=== PATIENT | female | born 1980 | race Two or more races ===

== ENCOUNTER 2017-08-03 12:43 | Emergency (ER) | payer OTHER ==
[2017-08-03 12:48] VITALS: TEMP 98.7; BMI 37.8
--- NOTE | 2017-08-03 14:17 | PDOC ---
Attending Attestation - Resident Resident Name: Rsoalinda Bellamy - ED Attending Attestation I have performed the following: I have examined & evaluated the patient, The case was reviewed & discussed with the resident, I agree w/resident's findings & plan, Exceptions are as noted - Medical Decision Making 08/03/17 14:17 I, Dr. Zohreh Dang, DO, attest that this document has been prepared under my direction and personally reviewed by me in its entirety. I further attest, that it accurately reflects all work, treatment, procedures and medical decision -making performed by me. 08/03/17 15:10 a/p: 37yo female with blurred vision earlier today (since resolved) and a headache -R sided long, will do ct head to r/o mass compressing optic chiasm -no focal neuro deficits -states more recent headaches -labs -reassess <Zohreh Dang - Last Filed: 08/03/17 15:10> - HPI HPI: 08/03/17 15:53 Patient is a 37 year old female with a significant past medical history of who presents to the ED with complaints of chronic headache that began 2 days ago. Patient reports headache began 2 days while at home suddenly. She reports the headache has been chronic for 2 days with no signs of relief. Patient reports intensity of headache pain increasing today while at work. She reports experiencing intermittent episodes of blurred vision secondary to headache pain. PAtient stays headache pain is a localized pain to her right side. Denies chest pain, SOB. Denies nausea, vomiting. Denies fevers, chills. Denies any other symptoms. Allergies: None Social history: Lives with and son. No smoking. Social drinker. No illicit drugs. Surgical history: None PMD: None. - Physicial Exam PE: 08/03/17 15:53 GENERAL: Awake, alert, and fully oriented, in no acute distress HEAD: No signs of trauma EYES: PERRLA, EOMI, sclera anicteric, conjunctiva clear ENT: Auricles normal inspection, hearing grossly normal, nares patent, oropharynx clear without exudates. Moist mucosa NECK: Normal ROM, supple, no lymphadenopathy, JVD, or masses LUNGS: Breath sounds equal, clear to auscultation bilaterally. No wheezes, and no crackles HEART: Regular rate and rhythm, normal S1 and S2, no murmurs, rubs or gallops ABDOMEN: Soft, nontender, normoactive bowel sounds. No guarding, no rebound. No masses EXTREMITIES: Normal range of motion, no edema. No clubbing or cyanosis. No cords, erythema, or tenderness NEUROLOGICAL: Cranial nerves II through XII grossly intact. Normal speech, normal gait SKIN: Warm, Dry, normal turgor, no rashes or lesions noted. - Medical Decision Making 08/03/17 15:53 Documentation prepared by Nish Burrows, acting as electromedical equipment technician for Zohreh Dang DO. <Nish Burrows - Last Filed: 08/03/17 15:54>
--- NOTE | 2017-08-03 14:31 | PDOC ---
History of Present Illness - General Chief Complaint: Difficulty with Vision Stated Complaint: HEADACHES, BLURRY VISION Time Seen by Provider: 08/03/17 14:10 History Source: Patient Exam Limitations: No Limitations - History of Present Illness Initial Comments: 08/03/17 14:28 CC: 2 day h/o headache with associated acute onset of blurry vision Patient is a 37 y.o. 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 Patient denies any associated confusion, diaphoresis, chest pain, shortness of breath or visual loss (just bluriness). At time of presentation to our ED, the blurry vision had largely resolved though patient c/o decreased peripheral vision. Patient notes she has a h/o migraines (3-4 migraines monthly) however she has never experienced visual loss. PMD: None Surgical: None NKDA Social: (4-5 cigarettes/month), 10 drinks monthly, Past History - Past Medical History Allergies/Adverse Reactions: Allergies Allergy/AdvReac Type Severity Reaction Status Date / Time No Known Allergies Allergy Verified 08/03/17 12:48 Home Medications: Ambulatory Orders NK [No Known Home Medication] 12/19/15 Kidney Stones: Yes - Suicide/Smoking/Psychosocial Hx Smoking Status: No Smoking History: Current some day smoker Have you smoked in the past 12 months: Yes Number of Cigarettes Smoked Daily: 2 Information on smoking cessation initiated: Yes 'Breaking Loose' booklet given: 08/03/17 Hx Alcohol Use: Yes (SOCIAL) Drug/Substance Use Hx: No Substance Use Type: None Review of Systems - Review of Systems Constitutional: No: Chills, Fever HEENTM: Yes: Blurred Vision. No: Eye Pain, Double Vision, Hearing Loss, Throat Pain Respiratory: No: Shortness of Breath, Hemoptysis Cardiac (ROS): No: Chest Pain, Lightheadedness, Palpitations ABD/GI: No: Constipated, Diarrhea, Nausea, Vomiting : No: Burning, Dysuria All Other Systems: Reviewed and Negative *Physical Exam - Vital Signs Last Vital Signs Temp Pulse Resp BP Pulse Ox 98.7 F 81 20 110/71 98 08/03/17 12:45 08/03/17 12:45 08/03/17 12:45 08/03/17 12:45 08/03/17 12:45 - Physical Exam General Appearance: Yes: Nourished, Obese HEENT: positive: EOMI, MCKAY. negative: Sinus Tenderness Neck: positive: Trachea midline, Supple Respiratory/Chest: positive: Lungs Clear, Normal Breath Sounds Cardiovascular: positive: Regular Rhythm, Regular Rate, S1, S2 Neurologic: positive: Fully Oriented, Alert ED Treatment Course - LABORATORY CBC & Chemistry Diagram: 08/03/17 14:37 08/03/17 14:37 - RADIOLOGY Radiology Studies Ordered: Category Date Time Status HEAD CT WITHOUT CONTRAST [CT] Stat CT Scan 08/03/17 14:26 Ordered Medical Decision Making - Medical Decision Making 08/03/17 14:51 Patient is a 37 y.o. obese female who presents c/o of acute onset of visual loss associated with a migraine. Initial DDX includes: migraine (possibly 2/2 to idiopathic intracranial HTN) vs. epidural hematoma vs. PLAN: 1. CBC, CMP 2. CT Head w/o contrast 3. 1 L IVNS 08/03/17 16:11 CT Head negative for acute mass, lesions, or hemorrhage. Patient's blurry vision and headache completely resolved. Patient discharged with follow up with PCP and neurology. *DC/Admit/Observation/Transfer Diagnosis at time of Disposition: Migraine - Discharge Dispostion Disposition: HOME Condition at time of disposition: Good Admit: No - Referrals Referrals: Valeria Gardner MD [Staff Physician] - - Patient Instructions Additional Instructions: Please call [phone] to establish primary care. In addition, please call Dr. Gardner, a neurologist, for evaluation of your headaches. Please return to the Emergency Department should your symptoms worsen. - Post Discharge Activity Forms/Work/School Notes: Back to Work
[2017-08-03] MEDS ORDERED: METOCLOPRAMIDE HCL INJECTION 10 MG/2 ML VIAL IVPUSH ONE (14:33)
[2017-08-03] MEDS ORDERED: SODIUM CHLORIDE 0.9% 1000 ML INFUS.BAG IV ONE (14:34)
[2017-08-03] MEDS ORDERED: METOCLOPRAMIDE HCL INJECTION 10 MG/2 ML VIAL ONE (14:40)
[2017-08-03 14:43] LABS: BASOPHIL 1.3 % (0-2.0); EOSINOPHIL 1.2 % (0-4.5); MCH 24.3 pg (25.7-33.7); MCHC 31.9 g/dl (32.0-36.0); MEAN CELL VOLUME 76.2 fl (80-96); MEAN PLT VOLUME 7.4 fl (7.5-11.1); NEUTROPHILS 65.5 % (42.8-82.8); PLATELET COUNT 338 K/MM3 (134-434); RDW 16.4 % (11.6-15.6); WHITE BLOOD COUNT 11.9 K/mm3 (4.0-10.0)
[2017-08-03 15:12] LABS: ALBUMIN 3.5 g/dl (3.4-5.0); ANION GAP 7 (8-16); BILIRUBIN,TOTAL 0.3 mg/dL (0.2-1.0); CO2 30 mmol/L (21-32); CREATININE 0.6 mg/dL (0.55-1.02); GLUCOSE,RANDOM 106 mg/dL (74-106); SGOT/AST 12 U/L (15-37); SGPT/ALT 16 U/L (12-78); TOT PROT 6.6 g/dl (6.4-8.2)
[2017-08-03 15:13] LABS: ALK PHOS 75 U/L (45-117)
[2017-08-03 16:53] VITALS: BP 130/71; PULSE 79
== END 2017-08-03 16:55 | disposition home or self-care (01) ==
LOC: JER 12:43
PROC: 3E033GC Introduction of Other Therapeutic Substance into Peripheral Vein, Percutaneous Approach (ICD-10-PCS; principal; 2017-08-03)
PROC: 3E033GC Introduction of Other Therapeutic Substance into Peripheral Vein, Percutaneous Approach (ICD-10-PCS; 2017-08-03)
DX: G43.909 Migraine, unspecified, not intractable, without status migrainosus (principal); F17.210 Nicotine dependence, cigarettes, uncomplicated
CPT/HCPCS: 36415; 70450-TC; 80053; 84703; 85025; 96374; 96375; 99282-25

== ENCOUNTER 2019-01-13 14:09 | Emergency (ER) | payer OTHER ==
[2019-01-13 14:21] VITALS: BMI 37.8
--- NOTE | 2019-01-13 14:51 | PDOC ---
History of Present Illness <Romeo Watt - Last Filed: 01/13/19 15:07> - General History Source: Patient Exam Limitations: No Limitations - History of Present Illness Initial Comments: 01/13/19 15:11 The patient is a 38 year old female , with a significant PMH of kidney stones, who presents to the emergency department with 3 weeks of intermittent right flank pain. The patient states the intermittent right flank pain radiates down into the thigh, exacerbated with sitting/ standing up and alleviated while lying flat and comes a few times a week. The patient reports her pain is different than past kidney stones. The patient reports her right flank pain worsened yesterday prompting her to go to Urgent Care today. The patient states she had a Urine Analysis taken (positive for nitrates) and was referred to the ED secondary to continuing pain and evalution for possible kidney stones. The patient states she lifts light boxes frequently at work. However, she denies any recent injuries or trauma. Denies any recent illness or sick contacts. The patient states she has taken tylenol over the past 2 weeks for the right flank pain with mild relief. The patient denies chest pain, shortness of breath, headache and dizziness. Denies fever, chills, nausea, vomit, diarrhea and constipation. Denies dysuria, foul smelling urine, frequency, urgency and hematuria. Allergies: NKA Surgical History: Essure placement Social History: No reported. PCP: Dr Millan <Stephen Chris - Last Filed: 01/13/19 19:00> - General Chief Complaint: Pain, Acute Stated Complaint: R/O KIDNEY STONE Time Seen by Provider: 01/13/19 14:44 Past History <Romeo Watt - Last Filed: 01/13/19 15:07> - Past Medical History Kidney Stones: Yes - Suicide/Smoking/Psychosocial Hx Smoking Status: No Smoking History: Current some day smoker Have you smoked in the past 12 months: Yes Number of Cigarettes Smoked Daily: 2 Information on smoking cessation initiated: No 'Breaking Loose' booklet given: 08/03/17 Hx Alcohol Use: No Drug/Substance Use Hx: No Substance Use Type: None <Stephen Chris - Last Filed: 01/13/19 19:00> - Past Medical History Allergies/Adverse Reactions: Allergies Allergy/AdvReac Type Severity Reaction Status Date / Time No Known Allergies Allergy Verified 01/13/19 14:18 Home Medications: Ambulatory Orders Nitrofurantoin Monohyd/M-Cryst [Macrobid -] 100 mg PO BID #9 capsule 01/13/19 Review of Systems - Review of Systems Able to Perform ROS?: Yes Comments:: 01/13/19 15:12 CONSTITUTIONAL: No reported: Fever, Chills, Diaphoresis, Generalized Weakness, Malaise, Loss of Appetite HEENT: No reported: Rhinorrhea, Nasal Congestion, Throat Pain, Throat Swelling, Difficulty Swallowing, Mouth Swelling, Ear Pain, Eye Pain, Visual Changes CARDIOVASCULAR: No reported: Chest Pain, Syncope, Palpitations, Irregular Heart Rate, Lightheadedness, Peripheral Edema RESPIRATORY: No reported: Cough, Shortness of Breath, SOB with Exertion, Orthopnea, Wheezing , Stridor, Hemoptysis GASTROINTESTINAL: No reported: Abdominal pain, Abdominal Distension, Nausea, Vomiting, Diarrhea, Constipation, Melena, Hematochezia GENITOURINARY: Reported: (+) Right flank pain. No reported: Dysuria, Frequency, Urgency, Hesitancy, Genital Pain MUSCULOSKELETAL: No reported: Myalgia, Arthralgia, Joint Swelling, Back pain, Neck Pain SKIN: No reported: Rash, Itching, Pallor HEMEATOLOGIC/IMMUNOLOGIC: No reported: Easy Bleeding, Easy Bruising, Lymphadenopathy, Frequent infections ENDOCRINE: No reported: Unexplained Weight Gain, Unexplained Weight Loss, Heat Intolerance , Cold Intolerance NEUROLOGIC: No reported: Headache, Focal Weakness, Paresthesias, Vertigo, Lightheadedness, Unsteady Gait, Seizure, Mental Status Changes, Incontinence PSYCHIATRIC: No reported: Anxiety, Depression <Stephen Chris - Last Filed: 01/13/19 19:00> *Physical Exam - Vital Signs Last Vital Signs Temp Pulse Resp BP Pulse Ox 98.3 F 73 18 120/72 5 L 01/13/19 14:15 01/13/19 14:15 01/13/19 14:15 01/13/19 14:15 01/13/19 14:15 <Romeo Watt - Last Filed: 01/13/19 15:07> - Vital Signs Last Vital Signs Temp Pulse Resp BP Pulse Ox 98.3 F 73 18 120/72 5 L 01/13/19 14:15 01/13/19 14:15 01/13/19 14:15 01/13/19 14:15 01/13/19 14:15 - Physical Exam Comments: 01/13/19 15:12 GENERAL: The patient is awake, alert, and fully oriented, Nontoxic - in no acute distress. HEAD: Normocephalic, atraumatic. EYES: extraocular movements intact, sclera anicteric, conjunctiva clear. ENT: Normal voice, Moist mucous membranes. NECK: Normal range of motion, supple LUNGS: Breath sounds equal, clear to auscultation bilaterally. No wheezes, no rhonchi, no rales. HEART: Regular rate and rhythm, normal S1 and S2 without murmur, rub or gallop. ABDOMEN: Soft, nontender, No guarding, no rebound. No CVA tenderness, mild ttp to R flank EXTREMITIES: Normal range of motion, no edema. NEUROLOGICAL: No facial assymetry, Normal speech, normal gait, strength symmetric b/l PSYCH: Normal mood, normal affect. SKIN: Warm, Dry, normal turgor, <Stephen Chris - Last Filed: 01/13/19 19:00> Moderate Sedation - Procedure Monitoring Vital Signs: Procedure Monitoring Vital Signs Temperature 98.3 F 01/13/19 14:15 Pulse Rate 73 01/13/19 14:15 Respiratory Rate 18 01/13/19 14:15 Blood Pressure 120/72 01/13/19 14:15 O2 Sat by Pulse Oximetry (%) 5 L 01/13/19 14:15 <Romeo Watt - Last Filed: 01/13/19 15:07> - Procedure Monitoring Vital Signs: Procedure Monitoring Vital Signs Temperature 98.3 F 01/13/19 14:15 Pulse Rate 73 01/13/19 14:15 Respiratory Rate 18 01/13/19 14:15 Blood Pressure 120/72 01/13/19 14:15 O2 Sat by Pulse Oximetry (%) 5 L 01/13/19 14:15 <Stephen Chris - Last Filed: 01/13/19 19:00> ED Treatment Course - LABORATORY CBC & Chemistry Diagram: 01/13/19 15:18 01/13/19 15:18 <Stephen Chris - Last Filed: 01/13/19 19:00> Medical Decision Making - Medical Decision Making 01/13/19 15:13 38-year-old female history of kidney stones presenting with intermittent right flank pain for last several weeks that seems to be present only when bending without associated dysuria, hematuria, fever, chills, numbness, tingling or weakness. On exam the patient is well-appearing, in no distress no tenderness noted in her abdomen, no CVA tenderness. The patient did have a UA at urgent care that was nitrite positive - The patient is otherwise asymptomatic I will recheck her urine will also obtain a CBC and CMP to rule out leukocytosis. Give the patient Toradol for pain <Stephen Chris - Last Filed: 01/13/19 19:00> *DC/Admit/Observation/Transfer - Attestations Scribe Attestion: 01/13/19 15:07 Documentation prepared by Romeo Watt, acting as certified medical technician assistant for Stephen Chris MD. <Romeo Watt - Last Filed: 01/13/19 15:07> - Discharge Dispostion Decision to Admit order: No <Stephen Chris - Last Filed: 01/13/19 19:00> Diagnosis at time of Disposition: Urinary tract infection Qualifiers: Urinary tract infection type: acute cystitis Hematuria presence: with hematuria Qualified Code(s): N30.01 - Acute cystitis with hematuria - Discharge Dispostion Disposition: HOME Condition at time of disposition: Improved - Referrals Referrals: April Millan MD [Primary Care Provider] - - Patient Instructions Printed Discharge Instructions: DI for Urinary Tract Infection (UTI) Additional Instructions: Return to the emergency department immediately with ANY new, persistent or worsening symptoms including fevers or chills, back pain or any other concerns. Please continue taking the antibiotics as prescribed. You MUST call and follow up with your doctor in 3-4 days for further evaluation of your symptoms. Results were discussed with you. Please make sure your doctor reviews the results of your emergency evaluation. Print Language: CHINESE - Post Discharge Activity
[2019-01-13] MEDS ORDERED: KETOROLAC TROMETHAMINE 30 MG/1 ML VIAL IVPUSH ONE (15:14)
[2019-01-13] MEDS ORDERED: KETOROLAC TROMETHAMINE 30 MG/1 ML VIAL ONE (15:41)
[2019-01-13 15:43] LABS: EOS % 1.1 % (0-4.5); HEMATOCRIT 38.3 % (32.4-45.2); HEMOGLOBIN 12.8 GM/dL (10.7-15.3); LYMPH % 26.1 % (8-40); MCHC 33.3 g/dl (32.0-36.0); MEAN PLT VOLUME 8.1 fl (7.5-11.1); MONO % 6.3 % (3.8-10.2); NEUT % 65.5 % (42.8-82.8); PLATELET COUNT 335 K/MM3 (134-434); RBC 4.91 M/mm3 (3.60-5.2); RDW 15.2 % (11.6-15.6)
[2019-01-13] MEDS ORDERED: IBUPROFEN 400 MG TABLET (FP) PO ONE ×2 (15:49→15:50)
[2019-01-13 16:38] LABS: ALBUMIN 3.5 g/dl (3.4-5.0); ALK PHOS 80 U/L (45-117); ANION GAP 5 MMOL/L (8-16); BILIRUBIN,TOTAL 0.3 mg/dL (0.2-1); BLOOD UREA NITROGEN 9 mg/dL (7-18); CALCIUM 8.9 mg/dL (8.5-10.1); CHLORIDE 106 mmol/L (98-107); CO2 29 mmol/L (21-32); CREATININE 0.7 mg/dL (0.55-1.3); GLUCOSE,RANDOM 87 mg/dL (74-106); POTASSIUM 4.3 mmol/L (3.5-5.1); SGOT/AST 23 U/L (15-37); SGPT/ALT 17 U/L (13-61); SODIUM 141 mmol/L (136-145)
[2019-01-13 18:56] LABS: URINE APPEARANCE SLCLOUDY; URINE BILIRUBIN NEGATIVE (<2.0 mg/dL); URINE COLOR YELLOW; URINE GLUCOSE (UA) NEGATIVE (NEGATIVE); URINE KETONE NEGATIVE (NEGATIVE); URINE LEUK ESTERASE NEGATIVE (NEGATIVE); URINE NITRITE POSITIVE (NEGATIVE); URINE PROTEIN NEGATIVE (NEGATIVE)
[2019-01-13 18:58] LABS: HCG,QUALITATIVE URINE Negative
[2019-01-13] MEDS ORDERED: NITROFURANTOIN MACROCRYSTAL 50 MG CAPSULE (FP) PO SCH (19:00)
[2019-01-13] MEDS ORDERED: NITROFURANTOIN MACROCRYSTAL 50 MG CAPSULE (FP) ONE (19:04)
[2019-01-13 19:17] LABS: EPI CELLS RARE /HPF (FEW); URINE BACTERIA RARE /hpf (NONE SEEN)
[2019-01-13 19:22] VITALS: BP 118/70; PULSE 85; TEMP 98.2
== END 2019-01-13 19:21 | disposition home or self-care (01) ==
LOC: JER 14:09
DX: N30.01 Acute cystitis with hematuria (principal); Z87.442 Personal history of urinary calculi
CPT/HCPCS: 36415; 80053; 81003; 81015; 84703; 85025; 87086; 87186; 99283-25

== ENCOUNTER 2023-08-15 07:38 | Emergency (ER) | payer SELFPAY ==
[2023-08-15 07:52] VITALS: RESP 16; BMI 37.8
[2023-08-15] MEDS ORDERED: IBUPROFEN 600 MG TABLET (FP) PO ONE ×2 (10:03→10:13)
[2023-08-15] MEDS ORDERED: LIDOCAINE 4% PATCH TP ONE ×2 (10:13)
[2023-08-15] MEDS: LIDOCAINE 5% TOPICAL PATCH TP ONE ×2 (10:14→10:17)
[2023-08-15 10:44] VITALS: BP 115/49; PULSE 68; TEMP 98
[2023-08-15] MEDS ORDERED: LIDOCAINE PATCH REMOVAL MC SCH ×2 (22:00)
== END 2023-08-15 10:44 | disposition home or self-care (01) ==
LOC: JERFT 07:38 → JER 07:38 → JERFT 10:44
DX: M25.561 Pain in right knee (principal)
CPT/HCPCS: 73562-TC-RT-FY; 99283-25